=== PATIENT | male | born 1965 | race Caucasian/White ===

== ENCOUNTER 2021-10-28 09:40 | Emergency (ER) | payer SELFPAY ==
[~2021-10-28] VITALS: Ht 167.6 cm; Wt 72.7 kg
[~2021-10-28 09:40] MED LIST: KEP500T PO
[2021-10-28 09:47] VITALS: BP 188/119
[2021-10-28] MEDS ORDERED: PENICILLIN G BENZATHINE 2,400,000 UNIT/4 ML SYRINGE IM STA (11:52)
== END 2021-10-28 12:39 | disposition home or self-care (01) ==
LOC: ER 09:41
DX: A64 Unspecified sexually transmitted disease (principal); V98.8XXA Other specified transport accidents, initial encounter; Y93.89 Activity, other specified; Y92.89 Other specified places as the place of occurrence of the external cause; Y99.8 Other external cause status
CPT/HCPCS: 36415; 86592; 87491; 87591; 96372; 99283; J0561

== ENCOUNTER 2024-09-28 11:11 | Inpatient (IN) | payer MEDICAID ==
[~2024-09-28] VITALS: Ht 172.7 cm; Wt 86.1 kg
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
--- NOTE | 2024-09-28 12:25 | ELECTROCARDIOGRAPH REPORT ---
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 Tarik Hamilton Measurements Intervals [place] Rate: 67 P: 25 [place]: 198 QRS: 49 QRSD: 93 T: 35 QT: 424 QTc: 448 Interpretive Statements Atrial-paced complexes Probable left atrial enlargement Electronically Signed On 10-05-2024 9:39:[address] Tarik Hamilton Please click the below link to view image of tracing.
[2024-09-28] MEDS ORDERED: potassium Cl 20 mEq SR tablet PO PRN ×2 (13:30)
[2024-09-28] MEDS ORDERED: mag hydrox/Alum hydrox/simeth 30ml oral suspension PO PRN (13:30)
[2024-09-28] MEDS ORDERED: ondansetron/PF 4mg/2ml inj IV PRN (13:30)
[2024-09-28] MEDS ORDERED: magnesium hydroxide 30ml (MOM) UD suspension PO PRN (13:30)
[2024-09-28] MEDS ORDERED: magnesium Cl slow-release 64mg tablet PO PRN (13:30)
[2024-09-28] MEDS ORDERED: acetaminophen 325mg tablet PO PRN (13:30)
[2024-09-28] MEDS ORDERED: potassium Cl 40MEQ/1/2NS 520ml 520 ML IV PRN (13:30)
[2024-09-28] MEDS ORDERED: magnesium sulf-water 4G/100mL 100 ML IV PRN (13:30)
[2024-09-28] MEDS ORDERED: magnesium sulf-water 2g/50mL 50 ML IV PRN (13:30)
[2024-09-28 13:56] LABS: MAGNESIUM 2.3 MG/DL (1.5-2.4); POTASSIUM 3.7 MMOL/L (3.5-5.1)
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
[2024-09-28] MEDS ORDERED: LORazepam 2 mg/ml vial IV PRN (15:40)
[2024-09-28] MEDS ORDERED: haloperidol 5mg tablet PO PRN (15:40)
[2024-09-28] MEDS ORDERED: haloperidol lactate 5mg/ml inj IM PRN (15:40)
[2024-09-28 15:55] LABS: BASOPHILS % (AUTO) 0.5 % (0-1); EOSINOPHILS # (AUTO) 0.1 X10'3 (0-0.9); EOSINOPHILS % (AUTO) 1.3 % (0-6); HEMATOCRIT 44.2 % (42.0-52.0); HEMOGLOBIN 14.6 g/dl (14.0-17.9); LYMPHOCYTES # (AUTO) 1.4 X10'3 (1.1-4.8); LYMPHOCYTES % (AUTO) 24.2 % (21-51); MEAN CORPUSCULAR VOLUME 90.8 FL (78-98); MEAN PLATELET VOLUME 7.4 FL (7.4-10.4); MONOCYTES # (AUTO) 0.4 X10'3 (0-0.9); MONOCYTES % (AUTO) 6.5 % (2-12); NEUTROPHILS % (AUTO) 67.5 % (42-75); PLATELET COUNT 309 X10'3 (140-440); RED BLOOD COUNT 4.87 X10'6 (4.70-6.10); RED CELL DISTRIBUTION WIDTH 14.6 % (11.5-14.5); WHITE BLOOD COUNT 5.9 X10'3 (4.5-11.0)
[2024-09-28 16:24] LABS: ALANINE AMINOTRANSFERASE 31 U/L (12-78); ALBUMIN 3.8 G/DL (3.4-5.0); ALBUMIN/GLOBULIN RATIO 1.2 (1.1-1.5); ALKALINE PHOSPHATASE 75 IU/L (46-116); ANION GAP 9 (8-16); ASPARTATE AMINO TRANSFERASE 16 U/L (10-37); BILIRUBIN,TOTAL 0.5 MG/DL (0.1-1.0); BLOOD UREA NITROGEN 8 MG/DL (7-18); BUN/CREATININE RATIO 12.1 (10.0-20.0); CALCIUM 8.8 MG/DL (8.5-10.1); CHLORIDE 108 MMOL/L (99-107); CREATININE 0.66 MG/DL (0.60-1.10); GLUCOSE 112 MG/DL (70-104); POTASSIUM 3.6 MMOL/L (3.5-5.1); SODIUM 141 MMOL/L (135-145); TOTAL CARBON DIOXIDE 24.5 MMOL/L (24-32); TOTAL PROTEIN 6.9 G/DL (6.4-8.2); eCRCL 115 ML/MIN; eGFR > 90 ML/MIN
[2024-09-28 16:32] LABS: CHOL/HDL RATIO 3.3 (0.00-4.99); CHOLESTEROL 272 MG/DL (0-200); HDL CHOLESTEROL 83 MG/DL (35-60); LDL CHOLESTEROL 156 MG/DL (50-100); THYROID STIMULATING HORMONE 1.85 ulU/ml (0.34-4.50); TRIGLYCERIDES 90 MG/DL (20-135)
[2024-09-28] MEDS ORDERED: diazepam 2mg tablet PO PRN (17:00)
[2024-09-28] MEDS ORDERED: diazepam inj 5 MG/ML inj. IV PRN (17:00)
--- NOTE | 2024-09-28 17:17 | RADIOLOGY REPORT ---
EXAM: MR MRI HEAD CLINICAL HISTORY: cva COMPARISON: None TECHNIQUE: Multiplanar, multisequence magnetic resonance imaging of the brain was performed without intravenous contrast. FINDINGS: Study is limited by motion artifact. There is normal brain volume and formation. No significant chronic small-vessel ischemic changes. No hemorrhages, masses, mass effect, midline shift, herniation or cytotoxic edema following a large v ascular territory. No intra-axial or extra-axial fluid collections. No evidence of hydrocephalus. Th e basal cisterns are patent. The vascular flow voids are maintained. There is an area of blooming ove r the left anterior lateral ventricle on the GRE with no corresponding abnormality on the other seque nces which is thought to be artifactual. The pituitary gland, sella and parasellar regions are unremarkable. The cerebellar tonsils are normal position. The cerebellum is unremarkable. The orbits and globes are unremarkable. Pansinus mucoperiosteal thickening. The bilateral mastoids a re clear. 8 mm T1 / T2 hypointensity over the left frontal calvarium which may represent non pneumati zed frontal sinus . IMPRESSION: No evidence of acute intracranial abnormalities.
[2024-09-28] MEDS: aspirin 81mg, enteric-coated 1 TAB TABLET.DR PO SCH (17:27)
[2024-09-28] MEDS: folic acid 1mg/0.2ml inj IV SCH (17:27)
[2024-09-28] MEDS: atorvastatin 20mg tablet PO SCH (17:27)
[2024-09-28] MEDS: normal saline 1000ml 1,000 ML IV SCH (17:27)
[2024-09-28 18:00] VITALS: BP 147/93; PULSE 79; RESP 17; TEMP 97.2; O2SAT 99
--- NOTE | 2024-09-28 18:20 | CARDIOLOGY REPORT ---
APPROVED REPORT EXAM: Comprehensive 2D, Doppler, and color-flow Echocardiogram with saline. Patient Location: [facility] Blood Pressure: 178/101 mmHg Heart Rate: 75 bpm Rhythm: NSR Indications Hypertension CVA/TIA No meal attendant No previous echo 2D Dimensions LA Diam4.1 cm IVSd 1.0 (0.7-1.1cm) LVDd 5.5 cm PWd 1.0 (0.7-1.1cm) IVSs 1.6 (0.8-1.2cm) LVDs 3.4 (2.5-4.0cm) Aortic Root(2D) 3.4 cm PWs 1.6 (0.8-1.2cm) LVOT Diameter 2.33 (1.8-2.4cm) LVEF(%) 67.7 (>50%) Ao Asc Diam.3.55 cmIVC 14.85 mm FS (%) 38.1 % SV 98.3 ml CO 7.4 L/min M-Mode Dimensions MV EPSS 0.4 (<0.5cm) Aortic Valve AoV Peak Duncan. 171.2 cm/s AoV VTI 31.3 cm AO Peak GR. 11.7 mmHg AO Mean GR. 7 mmHg LVOT VTI 25.84 cm LVOT Peak Duncan. 133.5 cm/s JOSSUE(VTI)/BSA 3.52 cm2/m2 JOSSUE (VTI) 3.52 cm2 Mitral Valve MV E Velocity 70.8 cm/s MV Peak Gr. 2 mmHg MV DECEL TIME 188 ms MV A Velocity 97.9 cm/s MV PHT 60 ms E/A Ratio 0.7 MVA (PHT) 3.67 cm2 MV VMax78.0 cm/s TDI Medial E' P. V 10.03 cm/s E/Medial E' 7.1 Tricuspid Valve TR P. Velocity 234 cm/s RAP ESTIMATE 10 mmHg TR Peak Gr. 22 mmHg RVSP 32 mmHg Pulmonary Vein S1 Velocity 75.8 cm/s D2 Velocity 44.4 cm/s PVa Wrhzzywz72.5 cm/s PVa Uiehbnyc75 msec LEFT VENTRICLE Normal LV size and wall thickness. Overall systolic function is normal. LVEF is 70%. RIGHT VENTRICLE RV appears mildly dilated with normal contractility. RVSP is estimated at 32 mmHG. ATRIA Left atrium is mildly dilated. Saline study was performed with 2 IV injections of 10 ccs of agitated normal saline at rest, with cough, and with valsalva. Negative saline study for right to left flow. AORTIC VALVE Trileaflet AV appears sclerotic without stenosis. Trace insufficiency. MITRAL VALVE MV is thickened with mild annular thickening and no stenosis. Trace mitral regurgitation. TRICUSPID VALVE The tricuspid valve is normal in structure. Trace tricuspid regurgitation. PULMONIC VALVE The pulmonary valve is normal in structure. Trace pulmonic regurgitation. GREAT VESSELS The aortic root is normal in size. Ascending aorta measured at 3.6 cm. The IVC is normal in size and collapses >50% with inspiration. PERICARDIUM There is no pericardial effusion. Other Information Study Quality: Adequate Conclusion Normal LV size and wall thickness. Overall systolic function is normal. LVEF is 70%. RV appears mildly dilated with normal contractility. RVSP is estimated at 32 mmHG. Left atrium is mildly dilated. Saline study was performed with 2 IV injections of 10 ccs of agitated normal saline at rest, with cou gh, and with valsalva. Negative saline study for right to left flow. Trileaflet AV appears sclerotic without stenosis. Trace insufficiency. MV is thickened with mild annular thickening and no stenosis. Trace mitral regurgitation. The tricuspid valve is normal in structure. Trace tricuspid regurgitation. The pulmonary valve is normal in structure. Trace pulmonic regurgitation. Ascending aorta measured at 3.6 cm. There is no pericardial effusion.
[2024-09-28] MEDS: K and/or MAG REPLACEMENT MC SCH (19:41)
[2024-09-28 20:00] VITALS: BP 172/100; PULSE 71; RESP 15
--- NOTE | 2024-09-28 20:29 | [facility] CONSULT REPORT ---
[facility] Procedure Note [facility] Procedure Note Consult [facility] Note # Demographics Consult Type: General Neurology Patient Location: Inpatient First Name: piero Last Name: christina Date of : 1965 Age: 59 Gender: Male Facility: [facility] Time of Initial Page (): 09/28/2024 19:10 Time of Return Call (): 09/28/2024 19:10 # HPI Chief Complaint: - dizziness History: 59 yo M p/w dizziness for 2 days and worsened this morning. He was dropped off by his friend. He reported room spinning sensation, nausea and vom iting at that time. He was seen as a stroke alert. MRI is negative for acute stroke. Symptoms have improved but not yet resolved. He reported the IV valium worked the best so far. # Exam Mental Status: - awake - alert and oriented x 3 - follows commands Language: - normal speech - no aphasia - no dysarthria Cranial Nerves: - extra ocular movements intact - no facial droop - normal facial sensation Motor: - normal strength - normal bulk - no drift Sensory: - normal sensation Cerebellar: - normal cerebellar exam # ROS Additional: - complete review of systems otherwise negative # PMH-FH-SH Past Medical History: - seizure TBI # Data MRI: no acute ischemia # Assessment Impression: BPPV # Plan Therapy/Evaluation: Vestibular PT Medication: Meclizine 25 mg TID Valium and antiemetics prn Other: - If patient has any neurological deterioration please call me back immediately # Logistics Attestation of consult completion: The patient is located at: [facility]. Facility staff participated in the visit. I performed this telemedicine visit from my offsite office utilizing interactive 2 way audio and visual telecommunication technology. Total time spent in telemedicine encounter: I spent 23 minutes reviewing clinical data and/or imaging, obtaining history, examining the patient, communicating with the onsite care team, and in preparation of this report. # Demographics First Name:piero Last Name:christina Facility: [facility] Electronically signed at 09/28/2024 20:25 () by Ashlee Gatica MD Neuro Consult Order placed for: Yes ASHLEE GATICA MD Sep 28, 2024 20:29
[2024-09-28] MEDS: thiamine 100mg/ml 2ml inj. IV SCH (21:19)
[2024-09-28 22:00] VITALS: BP 163/122; PULSE 51; RESP 15; TEMP 97.9; O2SAT 94
[2024-09-29] VITALS (10 sets, daily range): BP systolic 132–172; BP diastolic 78–120; PULSE 62–82; RESP 15–18; TEMP 97.5–98.6; O2SAT 97–98
[2024-09-29] MEDS: acetaminophen 325mg tablet PO PRN (01:56)
[2024-09-29] MEDS: normal saline 500ml IV soln 500 ML IV SCH (05:25)
[2024-09-29] MEDS: normal saline 500ml IV soln 500 ML IV ONE (05:39)
[2024-09-29 06:14] LABS: EOSINOPHILS # (AUTO) 0.2 X10'3 (0-0.9); EOSINOPHILS % (AUTO) 4.9 % (0-6); HEMATOCRIT 38.3 % (42.0-52.0); LYMPHOCYTES # (AUTO) 1.8 X10'3 (1.1-4.8); LYMPHOCYTES % (AUTO) 38.3 % (21-51); MEAN CORPUSCULAR HEMOGLOBIN 30.8 PG (27.0-31.0); MEAN CORPUSCULAR VOLUME 90.8 FL (78-98); MEAN PLATELET VOLUME 7.8 FL (7.4-10.4); MONOCYTES # (AUTO) 0.5 X10'3 (0-0.9); MONOCYTES % (AUTO) 9.7 % (2-12); NEUTROPHILS # (AUTO) 2.1 X10'3 (1.8-7.7); NEUTROPHILS % (AUTO) 46.1 % (42-75); PLATELET COUNT 257 X10'3 (140-440); RED BLOOD COUNT 4.22 X10'6 (4.70-6.10); RED CELL DISTRIBUTION WIDTH 14.4 % (11.5-14.5); WHITE BLOOD COUNT 4.6 X10'3 (4.5-11.0)
[2024-09-29 06:34] LABS: ALANINE AMINOTRANSFERASE 26 U/L (12-78); ALBUMIN 3.3 G/DL (3.4-5.0); ALBUMIN/GLOBULIN RATIO 1.2 (1.1-1.5); ALKALINE PHOSPHATASE 65 IU/L (46-116); ANION GAP 6 (8-16); ASPARTATE AMINO TRANSFERASE 16 U/L (10-37); BILIRUBIN,TOTAL 0.3 MG/DL (0.1-1.0); BLOOD UREA NITROGEN 11 MG/DL (7-18); BUN/CREATININE RATIO 15.7 (10.0-20.0); CALCIUM 8.5 MG/DL (8.5-10.1); CHLORIDE 108 MMOL/L (99-107); GLUCOSE 104 MG/DL (70-104); LIPASE 34 U/L (16-77); PHOSPHORUS 3.6 MG/DL (2.3-4.5); POTASSIUM 3.6 MMOL/L (3.5-5.1); SODIUM 141 MMOL/L (135-145); TOTAL CARBON DIOXIDE 26.6 MMOL/L (24-32); eCRCL 109 ML/MIN; eGFR > 90 ML/MIN
[2024-09-29] MEDS: meclizine 12.5mg tablet PO SCH (08:10)
[2024-09-29] MEDS: losartan 50mg tablet PO SCH (08:34)
--- NOTE | 2024-09-29 10:15 | VASCULAR REPORT ---
Carotid Duplex Date: 09/29/2024 08:36 AM Clinical History: Dizziness Comparison: None Technique: Duplex Doppler evaluation of the extracranial carotid and vertebral arteries including col or Doppler and spectral/pulsed waveform analysis was performed. Findings: RIGHT SIDE: The peak systolic velocities are 89 cm/s in the distal CCA and 97 cm/s in the proximal ICA.The ICA/CC A ratio is less than 2. The external carotid artery is patent with peak systolic velocity of 119 cm/s proximally. There is appropriate antegrade flow in the right vertebral artery. LEFT SIDE: The peak systolic velocities are 154 cm/s in the distal CCA and 106 cm/s in the proximal ICA.. The IC A/CCA ratio is less than 1. The external carotid artery is patent with peak systolic velocity of 104 cm/s proximally. There is appropriate antegrade flow in the left vertebral artery. IMPRESSION: No hemodynamically significant stenosis noted in the right carotid system. No hemodynamically significant stenosis noted in the left carotid system. Reference: Radiology 2003; 229:[id number]
[2024-09-29] MEDS: amLODIPine 5mg tablet PO SCH (11:40)
[2024-09-29] MEDS: hydrALAZINE 20mg/ml inj. IV ONE (13:07)
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
[2024-09-30 06:00] VITALS: BP 141/94; PULSE 67; RESP 15; TEMP 98; O2SAT 98
[2024-09-30 06:17] LABS: BASOPHILS % (AUTO) 0.7 % (0-1); EOSINOPHILS # (AUTO) 0.3 X10'3 (0-0.9); EOSINOPHILS % (AUTO) 5.9 % (0-6); HEMATOCRIT 43.4 % (42.0-52.0); HEMOGLOBIN 14.6 g/dl (14.0-17.9); LYMPHOCYTES # (AUTO) 1.5 X10'3 (1.1-4.8); LYMPHOCYTES % (AUTO) 33.8 % (21-51); MEAN CORPUSCULAR HEMOGLOBIN 30.8 PG (27.0-31.0); MEAN CORPUSCULAR HGB CONC 33.6 g/dL (33.0-36.5); MEAN CORPUSCULAR VOLUME 91.6 FL (78-98); MEAN PLATELET VOLUME 7.5 FL (7.4-10.4); MONOCYTES # (AUTO) 0.4 X10'3 (0-0.9); MONOCYTES % (AUTO) 9.9 % (2-12); NEUTROPHILS # (AUTO) 2.2 X10'3 (1.8-7.7); NEUTROPHILS % (AUTO) 49.7 % (42-75); PLATELET COUNT 290 X10'3 (140-440); RED BLOOD COUNT 4.74 X10'6 (4.70-6.10); RED CELL DISTRIBUTION WIDTH 14.4 % (11.5-14.5); WHITE BLOOD COUNT 4.5 X10'3 (4.5-11.0)
[2024-09-30 06:21] LABS: PROTHROMBIN TIME 9.9 SECONDS (9.0-12.0)
[2024-09-30 06:29] LABS: ALANINE AMINOTRANSFERASE 32 U/L (12-78); ALBUMIN 3.6 G/DL (3.4-5.0); ALBUMIN/GLOBULIN RATIO 1.1 (1.1-1.5); ALKALINE PHOSPHATASE 76 IU/L (46-116); ANION GAP 6 (8-16); ASPARTATE AMINO TRANSFERASE 17 U/L (10-37); BILIRUBIN,TOTAL 0.5 MG/DL (0.1-1.0); BLOOD UREA NITROGEN 11 MG/DL (7-18); BUN/CREATININE RATIO 13.4 (10.0-20.0); CALCIUM 9.1 MG/DL (8.5-10.1); CHLORIDE 108 MMOL/L (99-107); CREATININE 0.82 MG/DL (0.60-1.10); GLUCOSE 102 MG/DL (70-104); LIPASE 31 U/L (16-77); MAGNESIUM 2.1 MG/DL (1.5-2.4); PHOSPHORUS 3.1 MG/DL (2.3-4.5); POTASSIUM 4.1 MMOL/L (3.5-5.1); SODIUM 142 MMOL/L (135-145); TOTAL CARBON DIOXIDE 28.2 MMOL/L (24-32); TOTAL PROTEIN 6.8 G/DL (6.4-8.2); eCRCL 93 ML/MIN; eGFR > 90 ML/MIN
[2024-09-30 08:00] VITALS: BP_SYST 147; BP_SYST 150; BP_SYST 162; BP_DIAS 101; BP_DIAS 96; BP_DIAS 97; PULSE 78; PULSE 80; PULSE 84
[2024-09-30] MEDS ORDERED: MECL-226 PO (09:52)
[2024-09-30] MEDS ORDERED: LOSA50TA64 PO (09:52)
[2024-09-30] MEDS ORDERED: ATOR20TA66 PO (09:52)
[2024-09-30] MEDS ORDERED: FOLI0.8C PO (09:52)
[2024-09-30] MEDS ORDERED: THIA50TA10 PO (09:52)
[2024-09-30] MEDS ORDERED: NOR5T PO (09:52)
[2024-09-30 10:00] VITALS: BP 150/96; PULSE 78; RESP 16; TEMP 97.6; O2SAT 96
[2024-09-30] MEDS: atorvastatin 20mg tablet PO SCH (10:03)
[2024-09-30 10:04] VITALS: BP_SYST 142; PULSE 66
--- NOTE | 2024-09-30 10:04 | DISCHARGE SUMMARY-Residence ---
Discharge Summary Providers to Resident Creating Document: TAMARA PLATA RES ~ Discharge Summary Admission Diagnosis: Stroke symptoms Hospital Course DATE OF ADMISSION: 09/28/2024 DATE OF DISCHARGE: 09/30/2024 Hospital course: 59 years old male presented with dizziness and feeling on balance, patient transferred from [facility] for higher level of care. Patient admitted with following diagnosis and treatment. Benign paroxysmal positional vertigo: Ruled out CVA: Imaging performed at [facility] on 09/28/2024: CT scan of the head: Impression: No evidence of acute intracranial process. No acute intracranial hemorrhage. CT angiogram: Impression: No evidence of large vessel occlusion or significant stenosis. Mild calcified plaques in the head and neck arteries as described without significant stenosis. Vascular ultrasound: No hemodynamically significant stenosis noted in the right carotid system. No hemodynamically significant stenosis noted in the left carotid system. MRI of the brain: No acute intracranial abnormalities. Neurology was consulted who recommended Meclizine 25 mg t.i.d. Alcohol use disorder: Substance use disorder: Patient admits drinking six pack beer every four days and marijuana. Substance use navigator consult. rehabilitation services manager consulted. Alcohol withdrawal protocol in place. Received Thiamine 200 mg IV t.i.d.Folic acid 1 mg IV daily. On alcohol withdrawal protocol Patient did not show any withdrawal symptoms. Dyslipidemia: Atorvastatin 40 mg daily. Hypertension emergency: Losartan 50 mg daily. Amlodipine 10 mg daily Laboratory Tests Test 09/28/24 11:18 09/28/24 15:48 09/28/24 21:54 09/29/24 05:42 Potassium Level 3.7 MMOL/L 3.6 MMOL/L 3.6 MMOL/L Hemoglobin A1c 5.8 % Magnesium Level 2.3 MG/DL 2.0 MG/DL White Blood Count 5.9 X10'3 4.6 X10'3 Red Blood Count 4.87 X10'6 4.22 X10'6 Hemoglobin 14.6 g/dl 13.0 g/dl Hematocrit 44.2 % 38.3 % Mean Corpuscular Volume 90.8 FL 90.8 FL Mean Corpuscular Hemoglobin 30.0 PG 30.8 PG Mean Corpuscular Hemoglobin Concent 33.0 g/dL 34.0 g/dL Red Cell Distribution Width 14.6 % 14.4 % Platelet Count 309 X10'3 257 X10'3 Mean Platelet Volume 7.4 FL 7.8 FL Neutrophils (%) (Auto) 67.5 % 46.1 % Lymphocytes (%) (Auto) 24.2 % 38.3 % Monocytes (%) (Auto) 6.5 % 9.7 % Eosinophils (%) (Auto) 1.3 % 4.9 % Basophils (%) (Auto) 0.5 % 1.0 % Neutrophils # (Auto) 4.0 X10'3 2.1 X10'3 Lymphocytes # (Auto) 1.4 X10'3 1.8 X10'3 Monocytes # (Auto) 0.4 X10'3 0.5 X10'3 Eosinophils # (Auto) 0.1 X10'3 0.2 X10'3 Basophils # (Auto) 0.0 X10'3 0.0 X10'3 CBC Comment Sodium Level 141 MMOL/L 141 MMOL/L Chloride Level 108 MMOL/L 108 MMOL/L Carbon Dioxide Level 24.5 MMOL/L 26.6 MMOL/L Anion Gap 9 6 Blood Urea Nitrogen 8 MG/DL 11 MG/DL Creatinine 0.66 MG/DL 0.70 MG/DL Estimated GFR/1.73 m2 > 90 ML/MIN > 90 ML/MIN BUN/Creatinine Ratio 12.1 15.7 Glucose Level 112 MG/DL 104 MG/DL Calcium Level 8.8 MG/DL 8.5 MG/DL Total Bilirubin 0.5 MG/DL 0.3 MG/DL Aspartate Amino Transf (AST/SGOT) 16 U/L 16 U/L Alanine Aminotransferase (ALT/SGPT) 31 U/L 26 U/L Alkaline Phosphatase 75 IU/L 65 IU/L Total Protein 6.9 G/DL 6.0 G/DL Albumin 3.8 G/DL 3.3 G/DL Globulin 3.1 G/DL 2.7 G/DL Albumin/Globulin Ratio 1.2 1.2 Triglycerides Level 90 MG/DL Cholesterol Level 272 MG/DL LDL Cholesterol 156 MG/DL HDL Cholesterol 83 MG/DL Cholesterol/HDL Ratio 3.3 Thyroid Stimulating Hormone (TSH) 1.85 ulU/ml Chemistry Comments Glucometer 114 mg/dl Prothrombin Time 10.0 SECONDS INR International Normalized Ratio 1.0 INR Coagulation Comments Phosphorus Level 3.6 MG/DL Lipase 34 U/L Test 09/29/24 07:06 09/29/24 12:32 09/29/24 17:27 09/29/24 20:50 Glucometer 121 mg/dl 109 mg/dl 107 mg/dl 117 mg/dl Test 09/30/24 05:45 09/30/24 07:17 White Blood Count 4.5 X10'3 Red Blood Count 4.74 X10'6 Hemoglobin 14.6 g/dl Hematocrit 43.4 % Mean Corpuscular Volume 91.6 FL Mean Corpuscular Hemoglobin 30.8 PG Mean Corpuscular Hemoglobin Concent 33.6 g/dL Red Cell Distribution Width 14.4 % Platelet Count 290 X10'3 Mean Platelet Volume 7.5 FL Neutrophils (%) (Auto) 49.7 % Lymphocytes (%) (Auto) 33.8 % Monocytes (%) (Auto) 9.9 % Eosinophils (%) (Auto) 5.9 % Basophils (%) (Auto) 0.7 % Neutrophils # (Auto) 2.2 X10'3 Lymphocytes # (Auto) 1.5 X10'3 Monocytes # (Auto) 0.4 X10'3 Eosinophils # (Auto) 0.3 X10'3 Basophils # (Auto) 0.0 X10'3 CBC Comment Prothrombin Time 9.9 SECONDS INR International Normalized Ratio 1.0 INR Coagulation Comments Sodium Level 142 MMOL/L Potassium Level 4.1 MMOL/L Chloride Level 108 MMOL/L Carbon Dioxide Level 28.2 MMOL/L Anion Gap 6 Blood Urea Nitrogen 11 MG/DL Creatinine 0.82 MG/DL Estimated GFR/1.73 m2 > 90 ML/MIN BUN/Creatinine Ratio 13.4 Glucose Level 102 MG/DL Calcium Level 9.1 MG/DL Phosphorus Level 3.1 MG/DL Magnesium Level 2.1 MG/DL Total Bilirubin 0.5 MG/DL Aspartate Amino Transf (AST/SGOT) 17 U/L Alanine Aminotransferase (ALT/SGPT) 32 U/L Alkaline Phosphatase 76 IU/L Total Protein 6.8 G/DL Albumin 3.6 G/DL Globulin 3.2 G/DL Albumin/Globulin Ratio 1.1 Lipase 31 U/L Chemistry Comments Glucometer 156 mg/dl Physical exam on discharge day General: Awake and Alert, no acute distress, very poor hygiene HEENT: Conjunctiva pink, Sclera clear, Mucus Membranes moist. Neck: Supple without masses and tenderness. Resp: Lungs clear to auscultation bilaterally. Heart: Regular Rate and rhythm, normal S1 and S2 without murmur, rub or gallop. Abdomen: Soft and non tender no organomegaly Extremities: No cyanosis,clubbing or edema. Skin: Warm and Dry. Neurological: Speech is clear, alert, and oriented x 4, no gross neurological deficits Patient discharged in a stable condition with following instruction Please follow-up with your primary care doctor in one week. Primary care doctor can refer you to [facility] for dizziness. Please take your medication as directed. Please check your blood pressure and provided a log for your primary care doctor for medication adjustment Discharge Diagnosis\Comment: benign paroxysmal positional vertigo CVA ruled out Alcohol use disorder Dyslipidemia Hypertension emergency Operations\Procedures: none Consultants: Neurology consult Complications: none Condition on DC: Stable New Medications: Folic Acid (Folic Acid) 0.8 Mg Capsule 1 CAP PO DAILY for 30 Days, #30 CAP 0 Refills Thiamine HCl (Vitamin B-1) 50 Mg Tablet 2 TAB PO DAILY for 30 Days, #60 TAB 0 Refills Amlodipine Besylate (Amlodipine Besylate) 5 Mg Tablet 10 MG PO DAILY for 30 Days, #30 TAB Atorvastatin Calcium (Atorvastatin Calcium) 20 Mg Tablet 40 MG PO DAILY for 30 Days, #30 TAB Losartan Potassium (Losartan Potassium) 50 Mg Tablet 50 MG PO DAILY for 30 Days, #30 TAB Meclizine HCl (Meclizine HCl) 12.5 Mg Tablet 25 MG PO TID for 10 Days, #30 TAB Discharge Summary: See hospital course *Problems/Diagnosis: (1) Vertigo Status: Acute Total Time Spent on D/C: > 30 Minutes Date of Service: Sep 30, 2024 Billing Provider: VINH BAILEY MD Common Visit Codes: 78268-CVN/OBS DISCH DAY >30min TAMARA PLATA, RES Sep 30, 2024 10:02 VINH BAILEY MD Oct 03, 2024 10:08
[2024-09-30] MEDS ORDERED: LORazepam 1 MG tablet PO PRN (15:40)
[2024-09-30] MEDS ORDERED: LORazepam 2 mg/ml vial IV PRN (15:40)
[2024-10-02] MEDS ORDERED: LORazepam 1 MG tablet PO PRN (15:40)
[2024-10-02] MEDS ORDERED: LORazepam 2 mg/ml vial IV PRN (15:40)
== END 2024-09-30 14:45 | disposition home or self-care (01) | DRG 111 ==
LOC: ER 11:11 → ED HOLD 13:32 → ORTHO 4S 14:55
PROVIDERS: ADMIT Internal Medicine; ATTEND Internal Medicine
DX: H81.13 Benign paroxysmal vertigo, bilateral (principal); E78.5 Hyperlipidemia, unspecified; I16.1 Hypertensive emergency; F19.90 Other psychoactive substance use, unspecified, uncomplicated; F10.90 Alcohol use, unspecified, uncomplicated; Z86.73 Personal history of transient ischemic attack (TIA), and cerebral infarction without residual deficits
CPT/HCPCS: 36415; 70551; 80053; 80061; 82948; 83036; 83690; 83735; 84100; 84132; 84443; 85025; 85610; 87081; 93005; 93306; 93880; 97116; 97161; 97530; 99285; G0378; J0360; J3411; J3490; J7030; J7040; J8597